=== PATIENT | female | born 1975 | race Caucasian/White ===

== ENCOUNTER → 2019-02-21 09:17 | Outpatient (CLI) | payer BC, SELFPAY ==
--- NOTE | 2019-02-21 | DI.MG.S_ITS ---
BILATERAL DIGITAL DIAGNOSTIC MAMMOGRAM 3D/2D: 02/21/2019 CLINICAL: Right breast mass. Baseline. Family history of breast cancer. No prior exams were available for comparison. The tissue of both breasts is heterogeneously dense. This may lower the sensitivity of mammography. There is a triangular marker overlying the skin of the superior medial right breast at posterior depth at the site of the patient's reported palpable abnormality. There is an approximately 2.0 cm oval indistinct asymmetry underlying the triangular marker, best seen on the R LMBTO view. This asymmetry is low density and has an appearance close to adjacent fibroglandular tissues on spot compression views, and contains internal fat attenuation/fat tissue. No other suspicious masses, calcifications, or other findings are seen in either breast. IMPRESSION: INCOMPLETE: NEEDS ADDITIONAL IMAGING EVALUATION Approximately 2.0 cm oval indistinct low density asymmetry underlying the site of the patient's reported focal palpable abnormality. Targeted diagnostic ultrasound recommended for further evaluation, which will be performed immediately following this exam. This exam was interpreted at Station ID: [id number]. NOTE: For mammograms, a report in lay terms will be sent to the patient. Approximately 15% of breast malignancies will not be visualized mammographically. In the management of a palpable breast mass, a negative mammogram must not discourage biopsy of a clinically suspicious lesion. Electronically Signed By: Urbano Vilchis M.D. ecl/:02/21/2019 10:57:26 ACR BI-RADS Category 0: Incomplete [id number]
--- NOTE | 2019-02-21 | DI.US.S_ITS ---
LIMITED ULTRASOUND OF RIGHT BREAST: 02/21/2019 CLINICAL: Palpable right breast lump x 2 weeks. [facility] and real-time ultrasound of the right breast 1-2 o'clock region were performed. Diamond scale images of the real-time examination were reviewed. Targeted ultrasound was performed in the region of the patient's reported focal palpable area of concern located in the right breast at 1:00-2:00 position, with specific attention at 1:30 position 7 cm from the nipple. No underlying breast mass or abnormality is identified. There is no ultrasound correlate for the right breast asymmetry described on comparison mammography performed earlier the same day on 02/21/19. IMPRESSION: PROBABLY BENIGN No ultrasound findings to explain patient's reported focal palpable area of concern located in the right breast at 1:00-2:00 position. There is no ultrasound correlate for the right breast asymmetry described on comparison mammography performed earlier the same day on 02/21/19 underlying the site of the patient's focal palpable concern. This may represent an island of dense fibroglandular tissue versus a subtle hamartoma. A follow-up diagnostic mammogram with targeted right breast ultrasound in 6 months is recommended to demonstrate stability of findings and to exclude malignancy. Also recommend clinical follow-up for further evaluation and management of the patient's reported symptoms. Consider breast MRI for further evaluation. The patient is advised to monitor her breasts and to return sooner for re-evaluation should she feel anything grow or change. This exam was interpreted at Station ID: [id number]. Electronically Signed By: Urbano Vilchis M.D. ecl/:02/21/2019 10:56:43 letter sent: Followup Recommended Ultrasound BI-RADS: 3 Probably benign
[2019-02-21 11:08] LABS: Cholesterol 164 mg/dL (140-199); HDL Cholesterol 64 mg/dL (40-60); LDL Cholesterol Calculated 83 mg/dL (<100); Triglycerides 84 mg/dL (35-150)
== END ==
PROVIDERS: PCP Physician Assistant; Visit Provider Physician Assistant
DX: R92.8 Other abnormal and inconclusive findings on diagnostic imaging of breast (principal); N64.89 Other specified disorders of breast; Z80.3 Family history of malignant neoplasm of breast; Z13.220 Encounter for screening for lipoid disorders
CPT/HCPCS: 36415; 76642; 77066; 80061; G0279

== ENCOUNTER → 2019-12-08 08:42 | Outpatient (CLI) | payer BC, SELFPAY ==
--- NOTE | 2019-12-08 | DI.US.S_ITS ---
LIMITED ULTRASOUND OF RIGHT BREAST: 12/08/2019 CLINICAL: Palpable right breast lump. Comparison is made to exams dated: 12/08/2019 mammogram, 02/21/2019 ultrasound, and 02/21/2019 mammogram - [facility]. Ultrasound of the right breast 1-2 o'clock region was performed. Diamond scale images of the real-time examination were reviewed. No significant abnormalities were seen sonographically in the right breast. IMPRESSION: NEGATIVE There is no sonographic evidence of malignancy. There is no abnormality seen in the right breast to correspond with the palpable abnormality which likely represents normal fibroglandular tissue, however, clinical correlation is recommended. A 1 year screening mammogram is recommended. This exam was interpreted at Station ID: [id number]. Electronically Signed By: Albaro simpson/nelson:12/08/2019 10:01:04 letter sent: Normal Exam Ultrasound BI-RADS: 1 Negative
--- NOTE | 2019-12-08 | DI.MG.S_ITS ---
BILATERAL DIGITAL DIAGNOSTIC MAMMOGRAM 3D/2D: 12/08/2019 CLINICAL: Short term follow up of the right breast. Due bilaterally. Comparison is made to exam dated: 02/21/2019 [facility] - [facility]. The tissue of both breasts is heterogeneously dense. This may lower the sensitivity of mammography. There is a 2 cm fat containing focal asymmetry in the right breast at 10 o'clock middle depth. This is less prominent and correlates as palpated. No other significant masses, calcifications, or other findings are seen in either breast. IMPRESSION: INCOMPLETE: NEEDS ADDITIONAL IMAGING EVALUATION The 2 cm fat containing focal asymmetry in the right breast has a differential diagnosis of fibroglandular tissue or a hamartoma and is indeterminate. An ultrasound is recommended. This exam was interpreted at Station ID: [id number]. NOTE: For mammograms, a report in lay terms will be sent to the patient. Approximately 15% of breast malignancies will not be visualized mammographically. In the management of a palpable breast mass, a negative mammogram must not discourage biopsy of a clinically suspicious lesion. Electronically Signed By: Albaro simpson/nelson:12/08/2019 09:15:12 ACR BI-RADS Category 0: Incomplete [id number]
== END ==
PROVIDERS: PCP Physician Assistant; Referring Provider Physician Assistant; Visit Provider Physician Assistant
DX: R92.8 Other abnormal and inconclusive findings on diagnostic imaging of breast (principal); N64.89 Other specified disorders of breast
CPT/HCPCS: 76642; 77066; G0279

== ENCOUNTER → 2021-06-05 15:36 | Outpatient (CLI) | payer BC, SELFPAY | PROVIDERS: PCP Physician Assistant; Referring Provider Physician Assistant; Visit Provider Physician Assistant | DX: Z12.31 Encounter for screening mammogram for malignant neoplasm of breast (principal); Z53.8 Procedure and treatment not carried out for other reasons ==

== ENCOUNTER → 2021-08-13 09:27 | Outpatient (CLI) | payer BC, SELFPAY ==
--- NOTE | 2021-08-13 | DI.MG.S_ITS ---
BILATERAL DIGITAL DIAGNOSTIC MAMMOGRAM 3D/2D: 08/13/2021 CLINICAL: Right breast lump. Comparison is made to exams dated: 12/08/2019 mammogram and 02/21/2019 mammogram - [facility]. The tissue of both breasts is heterogeneously dense. This may lower the sensitivity of mammography. No significant masses, calcifications, or other findings are seen in either breast. IMPRESSION: INCOMPLETE: NEEDS ADDITIONAL IMAGING EVALUATION There is no abnormality seen in the right breast to correspond with the palpable abnormality, however, ultrasound is recommended. This exam was interpreted at Station ID: [id number]. NOTE: For mammograms, a report in lay terms will be sent to the patient. Approximately 15% of breast malignancies will not be visualized mammographically. In the management of a palpable breast mass, a negative mammogram must not discourage biopsy of a clinically suspicious lesion. Electronically Signed By: Albaro simpson/nelson:08/13/2021 10:36:36 ACR BI-RADS Category 0: Incomplete [id number]
--- NOTE | 2021-08-13 | DI.US.S_ITS ---
LIMITED ULTRASOUND OF RIGHT BREAST: 08/13/2021 CLINICAL: Palpable right breast lump. Comparison is made to exams dated: 08/13/2021 mammogram, 12/08/2019 ultrasound, 12/08/2019 mammogram, 02/21/2019 ultrasound, and 02/21/2019 mammogram - [facility]. Real-time ultrasound of the right breast 10-12 o'clock region was performed. Diamond scale images of the real-time examination were reviewed. No significant abnormalities were seen sonographically in the right breast. Normal structures including a mildly prominent rib are seen in the region of the palpable abnormality. IMPRESSION: NEGATIVE There is no sonographic evidence of malignancy. There is no abnormality seen in the right breast to correspond with the palpable abnormality, however, clinical followup is recommended. A 1 year screening mammogram is recommended. This exam was interpreted at Station ID: [id number]. Electronically Signed By: Albaro Valle M.D. ar/:08/13/2021 10:39:59 letter sent: Clinical Evaluation Ultrasound BI-RADS: 1 Negative
== END ==
PROVIDERS: PCP Physician Assistant; Referring Provider Physician Assistant; Visit Provider Physician Assistant
DX: N63.10 Unspecified lump in the right breast, unspecified quadrant (principal); R92.2 Inconclusive mammogram
CPT/HCPCS: 76642; 77066; G0279

== ENCOUNTER → 2021-11-08 09:47 | Outpatient (CLI) | payer BC, SELFPAY ==
--- NOTE | 2021-11-08 09:51 | DI.RAD.S_ITS ---
PROCEDURE: XR CERVICAL SPINE 2V OR 3V INDICATIONS: scoliosis TECHNIQUE: 3 view(s) of the cervical spine were acquired. COMPARISON: None. FINDINGS: Bones: No fractures or dislocations to the T1 level. The lateral masses of C1 appear intact on the odontoid view. No suspicious bony lesions. C5-6 and C6-7 demonstrate disc space narrowing and osteophytes consistent with degenerative disc disease. Soft tissues: No prevertebral soft tissue swelling. IMPRESSION: Degenerative disc disease of C5-6 and C6-7 with disc space narrowing. Dictated by: Jaden Madrigal M.D. on 11/08/2021 at 11:17 Approved by: Jaden Madrigal M.D. on 11/08/2021 at 11:19
--- NOTE | 2021-11-08 09:51 | DI.RAD.S_ITS ---
PROCEDURE: XR T AND L SPINE 4 TO 5 VIEWS INDICATIONS: scoliosis TECHNIQUE: 2 views acquired of the thoracolumbar spine. COMPARISON: None. FINDINGS: Bones: There is mild rightward curvature of the thoracic lumbar spine with the rightward apex at T8 with a Wei angle of 8.2? with compensatory curvature of the lumbar spine with a Wei angle of 3.0?. No acute fractures or dislocations. Visualized inferior ribs appear intact. No suspicious bony lesions. Soft tissues: No suspicious soft tissue calcifications. IMPRESSION: S shaped curvature of the thoracolumbar spine as above. Dictated by: Jaden Madrigal M.D. on 11/08/2021 at 11:19 Approved by: Jaden Madrigal M.D. on 11/08/2021 at 11:24
[2021-11-08 11:44] LABS: TSH w/ Reflex to FT4 2.49 uIU/mL (0.47-4.68)
== END ==
PROVIDERS: PCP Family Medicine; Referring Provider Family Medicine; Visit Provider Family Medicine
DX: M50.322 Other cervical disc degeneration at C5-C6 level (principal); M48.02 Spinal stenosis, cervical region; M41.9 Scoliosis, unspecified; R00.2 Palpitations
CPT/HCPCS: 36415; 72040; 72083; 84443

== ENCOUNTER → 2021-12-25 08:45 | Outpatient (CLI) | payer BC, SELFPAY ==
--- NOTE | 2021-12-25 08:45 | DI.MRI.S_ITS ---
BREAST MRI OF BOTH BREASTS- WITH CAD: 12/25/2021 CLINICAL: MRI- Lump increased size. Comparison is made to exams dated: 08/13/2021 ultrasound, 08/13/2021 mammogram, 12/08/2019 ultrasound, and 12/08/2019 mammogram - [facility]. Interpretation of this MRI was correlated with available mammograms and ultrasounds. Informed consent was obtained from the patient. Gadolinium contrast calibrated to patient weight was injected. Axial T1, T2, sagittal T1, and pre and post contrast T1 images were obtained with a dedicated breast coil. Post processing was performed including computer generated subtraction, motion subtraction, computer aided calculations of any tumor volumes and dimensions, and 3D multiplanar reconstruction. Bilateral background breast enhancement is mild and symmetric. No mass or suspicious enhancement. No other findings are seen in either breast. There are no significant abnormalities seen in the axillary nodes region, infraclavicular nodes, or internal mammary nodes. IMPRESSION: NEGATIVE A 1 year screening mammogram is recommended. Future imaging is recommended as follows: 08/14/2022 screening mammogram. This exam was interpreted at Station ID: [id number]. Electronically Signed By: Andreas Sun M.D. jr/:12/26/2021 09:49:02 letter sent: Normal Exam ACR BI-RADS Category 1: Negative [id number]
== END ==
PROVIDERS: PCP Family Medicine; Referring Provider Family Medicine; Visit Provider Family Medicine
DX: R92.8 Other abnormal and inconclusive findings on diagnostic imaging of breast (principal); N63.10 Unspecified lump in the right breast, unspecified quadrant; N63.20 Unspecified lump in the left breast, unspecified quadrant
CPT/HCPCS: 77049; A9579

== ENCOUNTER → 2023-05-22 10:32 | Outpatient (CLI) | payer BC, SELFPAY ==
--- NOTE | 2023-05-22 10:34 | DI.RAD.S_ITS ---
PROCEDURE: XR CHEST 2V INDICATIONS: r/o PNA TECHNIQUE: 2 views of the chest were acquired. COMPARISON: None. FINDINGS: Surgical changes and devices: None. Lungs and pleura: Lungs are clear. No pleural effusions or pneumothorax. Mediastinum: Mediastinal contours are normal. Heart size is normal. Bones and chest wall: No suspicious bony abnormalities. Soft tissues appear unremarkable. IMPRESSION: No acute cardiopulmonary abnormality is seen. Dictated by: Adolfo Maurer M.D. on 05/22/2023 at 12:30 Approved by: Adolfo Muarer M.D. on 05/22/2023 at 12:30
== END ==
LOC: RAD 10:33
PROVIDERS: PCP Family Medicine; Referring Provider Family Medicine; Visit Provider Family Medicine
DX: R05.9 Cough, unspecified (principal); R52 Pain, unspecified
CPT/HCPCS: 71046

== ENCOUNTER → 2023-06-23 09:03 | Outpatient (CLI) | payer BC, SELFPAY ==
[2023-06-23 10:08] LABS: Add Manual Diff / Slide Review NO; Basophils Absolute Auto 0 /uL (0-100); Basophils Percent Auto 0.7 % (0-2); Eosinophils Absolute Auto 300 /uL (0-450); Eosinophils Percent Auto 6.5 % (2-4); Hematocrit 40.8 % (36-46); Hemoglobin 13.9 g/dL (12.0-16.0); Lymphocytes Absolute Auto 1700 /uL (1100-4500); Lymphocytes Percent Auto 38.3 % (25-40); Mean Corpuscular HGB Conc 34.1 % (30-36); Mean Corpuscular Hemoglobin 32.3 PG (26-34); Mean Corpuscular Volume 94.7 fL (80-100); Monocytes Absolute Auto 500 /uL (0-900); Monocytes Percent Auto 10.3 % (3-14); Neutrophils Absolute Auto 2000 /uL (1500-7000); Neutrophils Percent Auto 44.2 % (50-75); Platelet Count 196 X10^3/uL (150-400); Red Cell Distribution Width 13.2 % (11.6-14.8); White Blood Cell Count 4.5 X10^3/uL (4.5-11.0)
[2023-06-23 10:31] LABS: Alanine Aminotransferase 31 IU/L (<35); Albumin 4.5 g/dL (3.5-5.0); Albumin Globulin Ratio 1.4 (1.0-2.8); Alkaline Phosphatase 54 U/L (38-126); Aspartate Aminotransferase 35 IU/L (14-36); BUN Creatinine Ratio 13.8 (6-22); Bilirubin Total 0.8 mg/dL (0.2-1.3); Blood Urea Nitrogen 9 mg/dL (7-17); Calcium 9.3 mg/dL (8.4-10.2); Carbon Dioxide 23 mmol/L (22-32); Chloride 102 mmol/L (98-107); Cholesterol 173 mg/dL (140-199); Estimated Glomerular Filt Rate > 60 mL/min (>60); Globulin 3.3 g/dL (1.7-4.1); Glucose 93 mg/dL (70-100); HDL Cholesterol 65 mg/dL (40-60); HEMOLYSIS < 15 (0-50); LDL Cholesterol Calculated 82 mg/dL (<100); Potassium 4.7 mmol/L (3.4-5.1); Sodium 137 mmol/L (137-145); Total Protein 7.8 g/dL (6.3-8.2); Triglycerides 130 mg/dL (35-150)
[2023-06-23 10:58] LABS: TSH w/ Reflex to FT4 3.48 uIU/mL (0.47-4.68)
[2023-06-23 11:37] LABS: Creatinine Urine Random 40.5 mg/dL
[2023-06-23 11:38] LABS: Microalbumin Urine Random < 0.6 mg/dL (0-1.6)
[2023-06-24 12:09] LABS: x Labcorp Estim. Avg Glu (eAG) 105 mg/dL (.); x Labcorp Hemoglobin A1c 5.3 % (4.8-5.6)
[2023-06-24 18:07] LABS: Fecal Immunochemical Test Negative (Negative)
== END ==
PROVIDERS: PCP Family Medicine; Referring Provider Family Medicine; Visit Provider Family Medicine
DX: Z12.11 Encounter for screening for malignant neoplasm of colon (principal); D69.6 Thrombocytopenia, unspecified; R74.8 Abnormal levels of other serum enzymes; E78.89 Other lipoprotein metabolism disorders
CPT/HCPCS: 36415; 80053; 80061; 82043; 82274; 82570; 83036; 84443; 85025

== ENCOUNTER 2024-08-31 09:52 | Emergency (ER) | payer BC, SELFPAY ==
[2024-08-31] VITALS (15 sets, daily range): BP systolic 111–146; BP diastolic 62–82; PULSE 60–75; RESP 20; TEMP 36.6; O2SAT 91–100; BMI 22.2
--- NOTE | 2024-08-31 10:14 | PC.NURSE ---
Pt arrived to ED today with numbness and tingling in right lower leg after PT yesterday. Pt has known bulging disc in lower back and has been going to PT x1 month. Pt states that something happened yesterday at PT and she is now having 10/10 pain, numbness and tingling all the way down her right leg and cannot stand on her toes. States that she is voiding and having normal BM, but it constantly feels like she is having pressure to have BM. Pt ambulatory, but right leg weak and noticable dragging of leg when walking into ED. Pt reported not having equal sensation bilaterally upon LE palpation. A&Ox4.
--- NOTE | 2024-08-31 10:29 | ED_ITS ---
HPI - Neuro Symptoms/Deficit General Chief Complaint: Neuro Symptoms/Deficit Stated Complaint: bulging disc that's pushing on nerve Time Seen by Provider: 08/31/24 10:04 Source: patient Mode of arrival: Ambulatory History of Present Illness HPI Narrative: Patient is a female with no significant past medical or surgical history who presents with progressively worsening lower back pain and associated symptoms. She reports excruciating pain in the lower back radiating to the right leg, accompanied by complete numbness, weakness, and a sensation of coldness in the affected leg. She is unable to bear weight on the right leg and describes tingling and spasms. Additionally, she has a sensation of needing to urinate or defecate without actual voiding. She denies any bowel or urinary incontinence. The symptoms have been ongoing for approximately one month, initially attributed to improper form during workouts, including deadlifts and running. She has been undergoing physical therapy without improvement, and her physical therapist recommended an MRI after her session earlier today. Pain has been refractory to ibuprofen and Tylenol. Pertinent positives: Tingling, numbness, weakness, cold sensation in the right leg, and spasms. Sensation of needing to urinate or defecate without voiding. Pertinent negatives: No bowel or urinary incontinence, no numbness in the groin or perineal area, no history of heart disease, no use of blood thinners, no recent trauma or falls. Medications: Ibuprofen and Tylenol, taken intermittently for pain relief. Past Medical History: No significant medical history. Surgical History: No prior surgeries. On Anticoagulants: No Related Data Previous Rx's Medication Instructions Recorded norgestimate 0.25 mg-ethinyl 1 tab PO DAILY #84 tabs 05/31/24 estradiol 0.035 mg tablet (Estarylla) triamcinolone acetonide 0.1 % 1 applic topical BID #30 grams 08/29/24 topical cream Allergies Allergy/AdvReac Type Severity Reaction Status Date / Time No Known Drug Allergies Allergy Verified 08/29/24 15:26 Review of Systems Review of Systems ROS Unobtainable: All systems reviewed & are unremarkable except as noted in HPI and below Hematologic/Lymphatic On Anticoagulants: No Patient History Medical History (Updated 05/22/23 @ 10:27 by Stacy Myers MD) Pain aggravated by coughing and deep breathing Chicken pox (~1982) Palpitations Scoliosis Breast lump Surgical History (Updated 07/28/21 @ 20:39 by Kamryn Bhagat) Anesthesia Family History (Updated 07/28/21 @ 20:39 by Kamryn Bhagat) Father Hypertension Social History Smoking Status: Never smoker Smoking Status: Never smoker Exam Narrative Exam Narrative: General: Alert, in visible distress due to pain. Skin: Good turgor, no rash, unusual bruising or prominent lesions. Head: Normocephalic, atraumatic. HEENT: Conjunctiva clear, EOM intact, PERRL, mucous membranes moist. Neck: Supple, normal ROM. Heart: Regular rate and rhythm, no murmur or gallop or rubs. Lungs: Clear to auscultation. No rales, rhonchi, or wheezes. Abdomen: Soft and nontender. Bowel sounds normal. No mass or hernia. Back: Spine normal without deformity or tenderness, no CVA tenderness. Extremities: Weakness in both legs, more pronounced in the right leg. Weakness to lift the right leg off the bed. Numbness and tingling noted in the posterior and lateral aspects of the right leg. No numbness in the perineal region. Peripheral pulses intact. Neurologic: Decreased strength in the right leg with tingling upon palpation. No flaccid paralysis. CN 2-12 normal. Normal sensation and motor exam. Psychiatric: Oriented ?3, normal mood and affect. Initial Vital Signs Initial Vital Signs: Vital Signs Blood Pressure 146/80 H 08/31/24 09:59 Course Orders Ordered: ED Orders 08/31/24 10:32 CBC Auto Diff [Complete Blood Count AUTO DIFF] Stat CMP [Comprehensive Metabolic Panel] Stat 08/31/24 14:35 MR lumbar spine wo con Stat Ondansetron HCl (Ondansetron 4 Mg/2 Ml Inj) 4 mg IV Q2HR PRN PRN Reason: Nausea And Vomiting Last Admin: 08/31/24 10:40 Dose: 4 mg Documented By: SOHAN Discontinued Medications Acetaminophen (Acetaminophen 325 Mg Tablet) 650 mg PO NOW ONE Stop: 08/31/24 10:29 Last Admin: 08/31/24 10:42 Dose: 650 mg Documented By: SOHAN Cyclobenzaprine HCl (Cyclobenzaprine 10 Mg Tablet) 5 mg PO NOW ONE Stop: 08/31/24 10:25 Last Admin: 08/31/24 10:41 Dose: 5 mg Documented By: MPO Morphine Sulfate (Morphine 2 Mg/Ml Inj) 1 mg IV NOW ONE Stop: 08/31/24 10:25 Last Admin: 08/31/24 10:41 Dose: 1 mg Documented By: MPO Morphine Sulfate (Morphine 2 Mg/Ml Inj) 2 mg IV NOW ONE Stop: 08/31/24 15:39 Last Admin: 08/31/24 15:42 Dose: 2 mg Documented By: SB Vital Signs Vital signs: Vital Signs - 8 hr 08/31/24 09:59 08/31/24 10:00 08/31/24 10:04 Temperature 98 F Pulse Rate 63 63 Respiratory Rate 20 Blood Pressure 146/80 H 146/80 H Pulse Oximetry 100 100 Oxygen Delivery Method Room Air 08/31/24 11:32 08/31/24 11:33 08/31/24 11:33 Temperature Pulse Rate 64 Respiratory Rate Blood Pressure 124/74 Pulse Oximetry 91 100 Oxygen Delivery Method 08/31/24 12:00 08/31/24 12:00 08/31/24 12:30 Temperature Pulse Rate 60 Respiratory Rate Blood Pressure 115/62 111/68 Pulse Oximetry 100 Oxygen Delivery Method 08/31/24 12:30 08/31/24 13:00 08/31/24 13:00 Temperature Pulse Rate 63 62 Respiratory Rate Blood Pressure 113/67 Pulse Oximetry 98 99 Oxygen Delivery Method MDM - Neuro Symptoms/Deficit Lab Data 08/31/24 10:32 08/31/24 10:32 Labs: Lab Results 08/31/24 Range/Units 10:32 WBC 6.1 (4.5-11.0) X10^3/uL RBC 4.30 (4.0-5.2) X10^6/uL Hgb 13.8 (12.0-16.0) g/dL Hct 41.0 (36-46) % MCV 95.4 (80-100) fL MCH 32.2 (26-34) PG MCHC 33.7 (30-36) % RDW 12.8 (11.6-14.8) % Plt Count 191 (150-400) X10^3/uL Neut % (Auto) 72.7 (50-75) % Lymph % (Auto) 17.5 L (25-40) % [place] % (Auto) 7.2 (3-14) % Eos % (Auto) 2.2 (2-4) % Baso % (Auto) 0.4 (0-2) % Neut # (Auto) 4500 (4165-8878) /uL Lymph # (Auto) 1100 (9051-0165) /uL [place] # (Auto) 400 (0-900) /uL Eos # (Auto) 100 (0-450) /uL Baso # (Auto) 0 (0-100) /uL Sodium 138 (137-145) mmol/L Potassium 3.9 (3.4-5.1) mmol/L Chloride 105 (98-107) mmol/L Carbon Dioxide 23 (22-32) mmol/L BUN 8 (7-17) mg/dL Creatinine 0.68 (0.52-1.04) mg/dL Estimated GFR > 60 (>60) mL/min BUN/Creatinine Ratio 11.8 (6-22) Glucose 101 H (70-99) mg/dL Calcium 9.5 (8.4-10.2) mg/dL Total Bilirubin 1.0 (0.2-1.3) mg/dL AST 38 H (14-36) IU/L ALT 38 H (<35) IU/L Alkaline Phosphatase 50 (38-126) U/L Total Protein 7.9 (6.3-8.2) g/dL Albumin 4.8 (3.5-5.0) g/dL Globulin 3.1 (1.7-4.1) g/dL Albumin/Globulin Ratio 1.5 (1.0-2.8) Point of Care Testing Test Results Negative Urine Dip Bedside Urine Glucose Negative Bedside Urine Bilirubin - Negative Bedside Urine Ketone +/- 5 Urine Specific [place] 1.010 Bedside Urine Occult Blood - Negative Bedside Urine pH 6.0 Bedside Urine Protein - Negative Bedside Urine Urobilinogen - Negative Bedside Urine Nitrite - Negative Bedside Urine Leukocytes - Negative Esterase Imaging Data MRI lumbar: My Impression: On review of patient's MRI I do see evidence of disc protrusion and likely nerve impingement. Radiologist's Impression: L5-S1: Annulus tear plus mild broad-based disc bulge with associated extruded right paracentral free disc fragment. The disc fragment measures approximately 0.8 x 0.7 x 0.9 cm and results in severe central canal stenosis and obliterates the right S1 and S2 nerve roots in the right side of the canal. IMPRESSION: 1. A free disc fragment at L5-S1 results in severe central canal stenosis and obliteration of the right S1 and S2 nerve roots. 2. There is disc bulge plus superimposed central posterior disc protrusion with mild canal stenosis at L3-L4. 3. Multilevel underlying lower lumbar facet arthropathy. MDM Narrative Medical decision making narrative: INITIAL EVALUATION AND PLAN: - Pain control with IV medications. - Basic labs to evaluate for other causes of symptoms. -stat MRI for potential spinal compression given worsening symptoms and new abnormal urge to defecate sensation - Follow-up with a back surgeon and continued physical therapy or potential transfer based on MRI findings. Differential diagnosis includes but is not limited to: sciatic nerve compression, cauda equina syndrome, structural spinal abnormalities, and other neurologic or musculoskeletal conditions. 48-year-old female who has been dealing with low back pain working with physical therapy who had acute worsening of her symptoms including new gait abnormality, difficulty placing weight on her right lower extremity, constant urge to defecate without the ability to do so. Patient's physical exam reveals no significant weakness on testing however patient is subjectively feels more weak on the right lower extremity she has sensory deficits over the posterior aspect in the lateral aspect of the right leg no saddle anesthesia identified good gluteal squeeze so rectal tone was deferred, patient had postvoid residual testing where she had 0 residual urine within the bladder. Based on all this I have lower suspicion for cauda equina I do not believe patient requires urgent transfer at this time or stat neurosurgical consultation believe that it is reasonable to wait for an MRI in this case. Given patient's significant worsening of symptoms and new neurological deficits I feel an MRI in the emergency department is warranted rather than waiting for an outpatient especially given patient has been doing outpatient PT and typical treatments that are recommended for conservative management. -patient's MRI returns with concerns for ruptured disc with free segment compressing S1-S2 nerve roots causing near-complete obliteration per CT report this correlates with patient's current neurological deficits. Given the patient has required multiple doses of IV narcotics in order to keep her pain under control believe that consultation with is warranted for potential surgical intervention. -consultation with Dr. Marie of the neurosurgical team at who recommends transfer to their ED for potential surgical intervention in order to relieve compression on her S1-S2 nerve roots. Patient will go via ALS to the emergency department for further evaluation all imaging and notes will be sent with the patient. Discharge Plan Departure Prescriptions: No Action norgestimate-ethinyl estradiol [Estarylla] 0.25-35 mg-mcg tablet 1 tab PO DAILY Qty: 84 2RF triamcinolone acetonide 0.1 % cream 1 applic topical BID Qty: 30 0RF Rx Instructions: use for up to two weeks at a time Referrals: Brain Vargas MD [Primary Care Provider] -
[2024-08-31 10:39] LABS: Add Manual Diff / Slide Review NO; Basophils Absolute Auto 0 /uL (0-100); Basophils Percent Auto 0.4 % (0-2); Eosinophils Absolute Auto 100 /uL (0-450); Eosinophils Percent Auto 2.2 % (2-4); Hemoglobin 13.8 g/dL (12.0-16.0); Lymphocytes Absolute Auto 1100 /uL (1100-4500); Lymphocytes Percent Auto 17.5 % (25-40); Mean Corpuscular HGB Conc 33.7 % (30-36); Mean Corpuscular Hemoglobin 32.2 PG (26-34); Mean Corpuscular Volume 95.4 fL (80-100); Monocytes Absolute Auto 400 /uL (0-900); Monocytes Percent Auto 7.2 % (3-14); Neutrophils Absolute Auto 4500 /uL (1500-7000); Neutrophils Percent Auto 72.7 % (50-75); Platelet Count 191 X10^3/uL (150-400); Red Cell Distribution Width 12.8 % (11.6-14.8); White Blood Cell Count 6.1 X10^3/uL (4.5-11.0)
[2024-08-31] MEDS: ONDANSETRON 4 MG/2 ML INJ IV (10:40)
[2024-08-31] MEDS: MORPHINE 2 MG/ML INJ 1 MG IV (10:41)
[2024-08-31] MEDS: CYCLOBENZAPRINE 10 MG TABLET 5 MG PO (10:41)
[2024-08-31] MEDS: ACETAMINOPHEN 325 MG TABLET 650 MG PO (10:42)
[2024-08-31 10:50] LABS: Alanine Aminotransferase 38 IU/L (<35); Albumin 4.8 g/dL (3.5-5.0); Albumin Globulin Ratio 1.5 (1.0-2.8); Alkaline Phosphatase 50 U/L (38-126); Aspartate Aminotransferase 38 IU/L (14-36); BUN Creatinine Ratio 11.8 (6-22); Blood Urea Nitrogen 8 mg/dL (7-17); Calcium 9.5 mg/dL (8.4-10.2); Carbon Dioxide 23 mmol/L (22-32); Chloride 105 mmol/L (98-107); Estimated Glomerular Filt Rate > 60 mL/min (>60); Globulin 3.1 g/dL (1.7-4.1); Glucose 101 mg/dL (70-99); HEMOLYSIS < 15 (0-50); Potassium 3.9 mmol/L (3.4-5.1); Sodium 138 mmol/L (137-145); Total Protein 7.9 g/dL (6.3-8.2)
--- NOTE | 2024-08-31 11:26 | PC.NURSE ---
pt reports her symptoms have decreased in severity but is still having sensations numbness in her thigh and foot. She is ambulatory without assistive devices. She ambulated down the mcnulty independently to the restroom.
--- NOTE | 2024-08-31 14:35 | DI.MRI.S_ITS ---
PROCEDURE: MR LUMBAR SPINE WO CON INDICATIONS: Cauda equina, new right lower extremity numbness, TECHNIQUE: Noncontrast sagittal T1 spin echo and T2 fast echo, sagittal STIR, and T2 fast spin echo through the lumbar spine. In cases with scoliosis, additional coronal T2 fast spin echo may be performed. COMPARISON: None. FINDINGS: Image quality: Excellent. Alignment and Curvature: There is normal bony alignment. Bone Marrow: Marrow is of normal overall signal. No acute vertebral body compression fractures. Spinal Cord: Conus medullaris terminates at the T12-L1 level. Visualized cord demonstrates normal signal and size. Paraspinous Soft Tissues: No paravertebral masses. T12-L1: Normal appearance. L1-L2: Normal appearance. L2-L3: Normal appearance. L3-L4: Disc bulge with mild superimposed central posterior disc protrusion. Mild facet hypertrophy. Mild canal stenosis. No foraminal stenosis. L4-L5: Mild facet hypertrophy. No canal stenosis or foraminal stenosis. L5-S1: Annulus tear plus mild broad-based disc bulge with associated extruded right paracentral free disc fragment. The disc fragment measures approximately 0.8 x 0.7 x 0.9 cm and results in severe central canal stenosis and obliterates the right S1 and S2 nerve roots in the right side of the canal. IMPRESSION: 1. A free disc fragment at L5-S1 results in severe central canal stenosis and obliteration of the right S1 and S2 nerve roots. 2. There is disc bulge plus superimposed central posterior disc protrusion with mild canal stenosis at L3-L4. 3. Multilevel underlying lower lumbar facet arthropathy. Dictated by: Luis Sam M.D. on 08/31/2024 at 15:23 Approved by: Luis Sam M.D. on 08/31/2024 at 15:28
[2024-08-31] MEDS: MORPHINE 2 MG/ML INJ IV (15:42)
[2024-08-31] MEDS: KETOROLAC 30 MG/ML VIAL 15 MG IV (17:19)
== END 2024-08-31 17:24 | disposition home or self-care (01) ==
PROVIDERS: Emergency Provider Emergency Medicine; PCP Family Medicine
DX: G57.01 Lesion of sciatic nerve, right lower limb (principal); M62.830 Muscle spasm of back; R53.1 Weakness
CPT/HCPCS: 51798; 72148; 80053; 81003; 81025; 85025; 96374; 96375; 96376; 99284; J1885; J2270; J2405

== ENCOUNTER → 2024-09-09 09:07 | Outpatient (CLI) | payer BC, SELFPAY ==
[2024-09-09 11:00] LABS: Add Manual Diff / Slide Review NO; Basophils Absolute Auto 0 /uL (0-100); Basophils Percent Auto 0.5 % (0-2); Eosinophils Absolute Auto 400 /uL (0-450); Eosinophils Percent Auto 6.4 % (2-4); Hematocrit 38.6 % (36-46); Hemoglobin 13.4 g/dL (12.0-16.0); Lymphocytes Absolute Auto 2000 /uL (1100-4500); Lymphocytes Percent Auto 33.3 % (25-40); Mean Corpuscular HGB Conc 34.6 % (30-36); Mean Corpuscular Hemoglobin 32.9 PG (26-34); Mean Corpuscular Volume 95.1 fL (80-100); Monocytes Absolute Auto 500 /uL (0-900); Monocytes Percent Auto 8.9 % (3-14); Neutrophils Absolute Auto 3000 /uL (1500-7000); Neutrophils Percent Auto 50.9 % (50-75); Platelet Count 209 X10^3/uL (150-400); Red Blood Cell Count 4.06 X10^6/uL (4.0-5.2); Red Cell Distribution Width 12.5 % (11.6-14.8); White Blood Cell Count 5.9 X10^3/uL (4.5-11.0)
[2024-09-09 11:12] LABS: Erythrocyte Sedimentation Rate 5 MM/HR (0-20)
[2024-09-09 11:22] LABS: Alanine Aminotransferase 34 IU/L (<35); Albumin 4.7 g/dL (3.5-5.0); Albumin Globulin Ratio 1.8 (1.0-2.8); Alkaline Phosphatase 51 U/L (38-126); Aspartate Aminotransferase 34 IU/L (14-36); Bilirubin Total 0.9 mg/dL (0.2-1.3); Blood Urea Nitrogen 13 mg/dL (7-17); C-Reactive Protein Quant < 0.5 mg/dL (<1.0); Calcium 9.6 mg/dL (8.4-10.2); Carbon Dioxide 23 mmol/L (22-32); Chloride 103 mmol/L (98-107); Cholesterol 158 mg/dL (140-199); Estimated Glomerular Filt Rate > 60 mL/min (>60); Globulin 2.6 g/dL (1.7-4.1); Glucose 87 mg/dL (70-99); HDL Cholesterol 53 mg/dL (40-60); HEMOLYSIS < 15 (0-50); LDL Cholesterol Calculated 86 mg/dL (<100); Potassium 4.9 mmol/L (3.4-5.1); Sodium 136 mmol/L (137-145); Total Protein 7.3 g/dL (6.3-8.2); Triglycerides 93 mg/dL (35-150)
[2024-09-09 11:48] LABS: TSH w/ Reflex to FT4 2.59 uIU/mL (0.47-4.68)
== END ==
PROVIDERS: PCP Family Medicine; Referring Provider Family Medicine; Visit Provider Family Medicine
DX: Z12.11 Encounter for screening for malignant neoplasm of colon (principal); Z01.419 Encounter for gynecological examination (general) (routine) without abnormal findings; R00.2 Palpitations; I73.00 Raynaud's syndrome without gangrene; R68.89 Other general symptoms and signs
CPT/HCPCS: 36415; 80053; 80061; 82274; 84443; 85025; 85651; 86038; 86140

== ENCOUNTER → 2025-04-10 15:32 | Outpatient (CLI) | payer BC, SELFPAY ==
--- NOTE | 2025-04-10 15:33 | DI.MG.S_ITS ---
MM screening mammo BI: 04/10/2025. BI-RADS: 1 CLINICAL: 49-year old female for bilateral screening mammogram. Tyrer-Cuzick lifetime risk of 10.4%. No personal or first-degree family history of breast cancer. PRIOR EXAMS 12/25/2021, 08/13/2021, 12/08/2019, 02/21/2019. MAMMOGRAPHY TECHNIQUE: 2D and 3D (tomosynthesis) digital mammographic views obtained, with additional images as needed for full coverage. Current study was also evaluated with a Computer Aided Detection (CAD) system. DENSITY C. The breasts are heterogeneously dense, which may obscure small masses. MAMMOGRAPHY FINDINGS Bilateral: No suspicious mass, asymmetry, microcalcification, or other abnormality seen. No significant change from comparison. IMPRESSION: * No evidence of malignancy. RECOMMENDATIONS Bilateral * Annual screening mammography. OVERALL ASSESSMENT CATEGORY BI-RADS-1: Negative. The [employer] recommends annual screening mammography beginning at age 40 for women with average risk of breast cancer. ELECTRONICALLY SIGNED: Archana Ferro M.D. on 04/11/2025 at 12:36:17 PM PT Interpreting Station ID: [id number]
== END ==
LOC: MAMMO 15:32
PROVIDERS: PCP Family Medicine; Referring Provider Family Medicine; Visit Provider Family Medicine
DX: Z12.31 Encounter for screening mammogram for malignant neoplasm of breast (principal); R92.333 Mammographic heterogeneous density, bilateral breasts
CPT/HCPCS: 77063; 77067

== ENCOUNTER → 2025-05-06 15:46 | Outpatient (CLI) | payer BC, SELFPAY ==
--- NOTE | 2025-05-06 15:48 | DI.MRI.S_ITS ---
PROCEDURE: MR LUMBAR SPINE WO CON INDICATIONS: new right leg numbness and weakness, s/p lumbar surgery TECHNIQUE: Noncontrast sagittal T1 spin echo and T2 fast echo, sagittal STIR, and T2 fast spin echo through the lumbar spine. In cases with scoliosis, additional coronal T2 fast spin echo may be performed. COMPARISON: [facility], MR, MR LUMBAR SPINE WO CON, 08/31/2024, 14:24. FINDINGS: Image quality: Excellent. Alignment and Curvature: There is normal bony alignment. Bone Marrow: Marrow is of normal overall signal. No acute vertebral body compression fractures. Spinal Cord: Conus medullaris terminates at the L1 level. Visualized cord demonstrates normal signal and size. Paraspinous Soft Tissues: No paravertebral masses. T12-L1: Normal appearance. L1-L2: Normal appearance. L2-L3: Normal appearance. L3-L4: Disc desiccation. Central disc bulge and bilateral facet arthrosis with mild central canal stenosis not significantly changed from previous study. No significant neural foraminal narrowing. L4-L5: Bilateral facet arthrosis and hypertrophy of ligamentum flavum. Mild diffuse disc bulge with mild central canal stenosis and mild bilateral neural foraminal narrowing. L5-S1: Interval resection of previously noted free extruded disc segment. Bilateral facet arthrosis and central to right-sided disc herniation is seen with mild central canal stenosis and moderate right worse than left bilateral neural foraminal narrowing. Bulging disc likely contacting bilateral L5 nerve roots. IMPRESSION: 1. Interval resection of previously seen extruded disc fragment at L5-S1 level. Diffuse disc bulge and central to right-sided disc herniation with bilateral facet arthrosis causing mild central canal stenosis and moderate right worse than left bilateral neural foraminal narrowing as above. 2. Mild spondylitic changes at L3-4 and L4-5 levels unchanged from previous study. 3. No marrow edema. No acute vertebral body compression fracture or significant spondylolisthesis. No gross paraspinous soft tissue abnormalities. Dictated by: Neal Fuller M.D. on 05/08/2025 at 10:12 Approved by: Neal Fuller M.D. on 05/08/2025 at 10:16
== END ==
LOC: MRI 15:47
PROVIDERS: PCP Family Medicine; Referring Provider Family Medicine; Visit Provider Family Medicine
DX: M51.27 Other intervertebral disc displacement, lumbosacral region (principal); M47.816 Spondylosis without myelopathy or radiculopathy, lumbar region; M47.817 Spondylosis without myelopathy or radiculopathy, lumbosacral region; M51.360 Other intervertebral disc degeneration, lumbar region with discogenic back pain only; M51.370 Other intervertebral disc degeneration, lumbosacral region with discogenic back pain only; M48.061 Spinal stenosis, lumbar region without neurogenic claudication; M48.07 Spinal stenosis, lumbosacral region; G62.9 Polyneuropathy, unspecified; R29.898 Other symptoms and signs involving the musculoskeletal system; Z98.890 Other specified postprocedural states
CPT/HCPCS: 72148